=== PATIENT | female | born 1990 | race Caucasian/White ===

== ENCOUNTER → 2016-09-22 | Outpatient (CLI) | payer OTHER | LOC: BMCIMAGING 10:07 | PROVIDERS: ATTEND Physician Assistant Medical | DX: M25.571 Pain in right ankle and joints of right foot (principal) ==

== ENCOUNTER → 2017-11-16 | Outpatient (CLI) | payer OTHER | LOC: CIMAGING 10:40 | PROVIDERS: ATTEND Internal Medicine | DX: M54.16 Radiculopathy, lumbar region (principal); M53.3 Sacrococcygeal disorders, not elsewhere classified | CPT/HCPCS: 72100-PO; 72200-PO ==